=== PATIENT | male | born 1940 | race Caucasian/White ===

== ENCOUNTER 2017-12-06 10:22 | Day surgery (SDC) | payer MEDICARE ==
[~2017-12-06] VITALS: Ht 177.8 cm; Wt 110.7 kg
[~2017-12-06 10:22] MED LIST: BENZONATATE200 MG PO; BUFFERIN PO; CENTRUM SILVER1 TAB; FISH OIL1000 MG PO; FISH OIL600 MG PO; FLECAINIDE50 MG PO; HYDROCHLORO25 MG/TAB PO; MEDDOSEPAK PO; METOPROL TAR25 MG PO; METOPROLOL TART50 MG PO; OMEPRAZOLE20 M1 PO; PROSCAR5 MG PO; TERAZOSIN5 MG PO; XANAX0.5 MG PO; ZESTRIL5 M1 PO
[2017-12-06 16:38] VITALS: BP 152/79
== END 2017-12-06 16:55 | disposition home or self-care (01) ==
LOC: ENDO 10:22 → ORM 17:35
PROVIDERS: ATTEND Internal Medicine Gastroenterology
PROC: 0DB48ZX Excision of Esophagogastric Junction, Via Natural or Artificial Opening Endoscopic, Diagnostic (ICD-10-PCS; principal; 2017-12-06)
PROC: 0DB88ZX Excision of Small Intestine, Via Natural or Artificial Opening Endoscopic, Diagnostic (ICD-10-PCS; 2017-12-06)
PROC: 0DB68ZX Excision of Stomach, Via Natural or Artificial Opening Endoscopic, Diagnostic (ICD-10-PCS; 2017-12-06)
DX: K21.9 Gastro-esophageal reflux disease without esophagitis (principal); K29.50 Unspecified chronic gastritis without bleeding; K31.7 Polyp of stomach and duodenum; K44.9 Diaphragmatic hernia without obstruction or gangrene; R11.2 Nausea with vomiting, unspecified; R19.7 Diarrhea, unspecified; I10 Essential (primary) hypertension; I48.91 Unspecified atrial fibrillation; Z86.010 Personal history of colon polyps; Z95.0 Presence of cardiac pacemaker; Z98.890 Other specified postprocedural states; Z79.899 Other long term (current) drug therapy

== ENCOUNTER → 2018-08-26 | Outpatient (REF) | payer MEDICARE ==
[2018-08-26 07:48] LABS: HEMATOCRIT 45.8 % (39.0-50.0); HEMOGLOBIN 15.1 g/dl (14.0-18.0); IMMATURE GRANULOCYTES 0.3 % (0.0-5.0); MEAN CELL VOLUME 92.3 fL CALC (80.0-100.0); MEAN CORPUSCULAR HGB 30.4 pG CALC (26.0-32.0); NEUT# 3.37 thou/uL (1.82-7.42); RED BLOOD COUNT 4.96 mill/uL (4.70-6.10); RED CELL DISTRI WIDTH 13.5 % (11.5-15.5)
[2018-08-26 11:17] LABS: ALBUMIN 3.8 g/dL (3.2-5.0); ALKALINE PHOSPHATASE 61 u/l (38-126); ANION GAP 13 (6-22 (CALC)); BILIRUBIN, TOTAL 0.4 mg/dL (0.0-1.4); BUN 10 mg/dL (8-23); BUN/CREATININE RATIO 13 (12-20 (CALC)); CALCULATED LDLCHOLESTEROL 56 mg/dL (62-129 (CALC)); CARBON DIOXIDE 30 mmol/l (22-30); CHLORIDE 101 mmol/l (95-108); CHOLESTEROL HDL RATIO 2.3 (<4.4 (CALC)); CREATININE 0.7 mg/dL (0.7-1.3); GFR > 60 ML/MIN (>=60 (CALC)); GFR FOR AFR.AMER. > 60 ML/MIN (>=60 (CALC)); HDL CHOLESTEROL 71 mg/dL (>=40); POTASSIUM 4.1 mmol/l (3.5-5.1); SGOT/AST 33 u/l (19-48); SODIUM 140 mmol/l (137-146); TOTAL CHOLESTEROL 160 mg/dl (0-199); TOTAL PROTEIN 6.4 g/dL (6.3-8.2); TOTAL TRIGLYCERIDES 164 mg/dl (30-149); VLDL CHOLESTROL 33 mg/dl (0-38 (CALC))
[2018-08-26 11:54] LABS: TSH, 3RD GENERATION 3.66 uIU/mL (0.47 - 4.68)
== END | disposition home or self-care (01) ==
LOC: LAB 07:15
PROVIDERS: ATTEND Nurse Practitioner Adult Health
DX: I10 Essential (primary) hypertension (principal); E83.50 Unspecified disorder of calcium metabolism; E34.9 Endocrine disorder, unspecified; E83.52 Hypercalcemia

== ENCOUNTER → 2018-08-27 | Outpatient (REF) | payer MEDICARE ==
[2018-08-27 11:21] LABS: URINE BILIRUBIN - DIPSTICK NEGATIVE (NEGATIVE); URINE BLOOD DIPSTICK MODERATE (NEGATIVE); URINE COLOR YELLOW; URINE GLUCOSE - DIPSTICK NEGATIVE (NEGATIVE); URINE KETONE TRACE mg/dL (NEGATIVE); URINE LEUK ESTERASE SMALL (NEGATIVE); URINE NITRITE - DIPSTICK NEGATIVE (Negative); URINE PH 6.5 (4.5-8.0); URINE PROTEIN - DIPSTICK NEGATIVE (NEG-TRACE)
[2018-08-27 11:34] LABS: URINE BACTERIA FEW hpf; URINE CALCIUM OXALATE CRYSTALS FEW lpf
[2018-08-27 11:35] LABS: URINE TRANSITIONAL EPI. CELLS FEW hpf
== END | disposition home or self-care (01) ==
LOC: LABSPEC 10:28
PROVIDERS: ATTEND Internal Medicine
DX: R31.9 Hematuria, unspecified (principal); B95.2 Enterococcus as the cause of diseases classified elsewhere

== ENCOUNTER → 2018-09-09 | Outpatient (REF) | payer MEDICARE | END | disposition home or self-care (01) | LOC: NUCMED 07:58 | PROVIDERS: ATTEND Internal Medicine | DX: E21.3 Hyperparathyroidism, unspecified (principal) | CPT/HCPCS: A9500 ==

== ENCOUNTER → 2018-09-19 | Outpatient (REF) | payer MEDICARE ==
[2018-09-19 08:55] LABS: URINE BILIRUBIN - DIPSTICK NEGATIVE (NEGATIVE); URINE BLOOD DIPSTICK NEGATIVE (NEGATIVE); URINE COLOR YELLOW; URINE GLUCOSE - DIPSTICK NEGATIVE (NEGATIVE); URINE KETONE TRACE mg/dL (NEGATIVE); URINE LEUK ESTERASE TRACE (Negative); URINE NITRITE - DIPSTICK NEGATIVE (Negative); URINE PH 6.5 (4.5-8.0); URINE PROTEIN - DIPSTICK NEGATIVE (NEG-TRACE)
[2018-09-19 09:00] LABS: URINE CLARITY SL CLOUDY
== END | disposition home or self-care (01) ==
LOC: LABSPEC 08:02
PROVIDERS: ATTEND Internal Medicine
DX: N39.0 Urinary tract infection, site not specified (principal)

== ENCOUNTER 2021-04-19 07:57 | Day surgery (SDC) | payer MEDICARE ==
[~2021-04-19] VITALS: Ht 177.8 cm; Wt 99.8 kg
[~2021-04-19 07:57] MED LIST changes: +ADLT ASA LOW81 MG PO; +AMIODARONE200 MG PO; -CENTRUM SILVER1 TAB; +CENTRUM SILVER1 TAB PO; +ELIQUIS5 MG PO; -FLECAINIDE50 MG PO; +LIPITOR20 MG PO; +LISINOP/HCTZ1 TA1 PO; +TOPROL XL50 MG PO; +TYLENOL # 31 TA1 PO; +VITAMIN D31000 UNI1 PO; +XALATAN 0.005%2.5 ML OU
[2021-04-19 10:32] VITALS: BP 183/91
== END 2021-04-19 10:22 | disposition home or self-care (01) ==
LOC: ENDO 07:57
PROVIDERS: ATTEND Surgery
PROC: 0DJD8ZZ Inspection of Lower Intestinal Tract, Via Natural or Artificial Opening Endoscopic (ICD-10-PCS; principal; 2021-04-19)
DX: Z12.11 Encounter for screening for malignant neoplasm of colon (principal); Q43.9 Congenital malformation of intestine, unspecified; K64.8 Other hemorrhoids; I25.10 Atherosclerotic heart disease of native coronary artery without angina pectoris; Z86.010 Personal history of colon polyps; Z85.07 Personal history of malignant neoplasm of pancreas; Z95.5 Presence of coronary angioplasty implant and graft
CPT/HCPCS: G0105

== ENCOUNTER 2022-07-30 06:31 | Day surgery (SDC) | payer MEDICARE ==
[~2022-07-30] VITALS: Ht 177.8 cm; Wt 106.1 kg
[~2022-07-30 06:31] MED LIST changes: +CREON24000 UNT PO; +TAMSULOSIN HCL0.4 MG PO
[2022-07-30 08:23] VITALS: BP 143/85
== END 2022-07-30 08:37 | disposition home or self-care (01) ==
LOC: ENDO 06:31 → ORM 12:30 → ENDO 12:30
PROVIDERS: ATTEND Internal Medicine Gastroenterology
PROC: 0DB98ZX Excision of Duodenum, Via Natural or Artificial Opening Endoscopic, Diagnostic (ICD-10-PCS; principal; 2022-07-30)
PROC: 0DB78ZX Excision of Stomach, Pylorus, Via Natural or Artificial Opening Endoscopic, Diagnostic (ICD-10-PCS; 2022-07-30)
PROC: 0DB58ZX Excision of Esophagus, Via Natural or Artificial Opening Endoscopic, Diagnostic (ICD-10-PCS; 2022-07-30)
PROC: 0DB48ZX Excision of Esophagogastric Junction, Via Natural or Artificial Opening Endoscopic, Diagnostic (ICD-10-PCS; 2022-07-30)
DX: K22.70 Barrett's esophagus without dysplasia (principal); K29.70 Gastritis, unspecified, without bleeding; K29.80 Duodenitis without bleeding; K44.9 Diaphragmatic hernia without obstruction or gangrene; Z85.07 Personal history of malignant neoplasm of pancreas; Z90.411 Acquired partial absence of pancreas